=== PATIENT | male | born 1990 | race Caucasian/White ===

== ENCOUNTER 2022-04-20 20:44 | Emergency (ER) | payer OTHER, SELFPAY ==
[2022-04-20 22:17] VITALS: BP 117/61; PULSE 71; RESP 16; TEMP 37; O2SAT 100; BMI 19.2
--- NOTE | 2022-04-20 23:53 | ED_ITS ---
HPI - Wound/Laceration General Chief Complaint: Wound/Laceration Stated Complaint: Thumb lac Time Seen by Provider: 04/20/22 23:52 Source: patient Mode of arrival: ambulatory Limitations: no limitations History of Present Illness HPI narrative: 31 yo male presents to the ER for evaluation of a left thumb laceration. He was playing with a sword in his backyard when it slipped out of the casing, he went to catch it and he sustained a laceration to the inside of his left thumb. He reports there was a large flap and a lot of bleeding. He washed it out with soap and water and held pressure with a towel. He he came to the ER for evaluation of stitches. His tetanus is up-to-date. He states he can fully extend and bend the thumb. He denies any numbness or tingling. Onset (ago): hour(s) Extremity Location: left: hand (Thumb) Place: home Patient tetanus UTD: Yes Context: accidental Associated symptoms: pain Treatments prior to arrival: bandage Related Data Allergies Allergy/AdvReac Type Severity Reaction Status Date / Time No Known Allergies Allergy Unverified 05/17/20 18:35 [No Known Allergies*] Review of Systems Review of Systems: Constitutional: No Fever, No Chills Cardiovascular: No Chest Pain, No SOB Gastrointestinal: No Nausea, No Vomiting Musculoskeletal: No joint pain, No Myalgias Skin: + Skin Lesions, No rash Neuro: No Weakness, No Numbness Psych: + Anxiety/Panic, No Depression Heme/Lymph: No Bruising, No Lymphadenopathy PMFSH Social History Social History Advance Directives: No Advance Directives Information Provided: Yes Physical Exam Vital Signs: Vital Signs: Last Vital Signs Temp 98.6 F 04/20/22 22:17 Pulse 71 04/20/22 22:17 Resp 16 04/20/22 22:17 BP 117/61 04/20/22 22:17 Pulse Ox 100 04/20/22 22:17 O2 Del Method 04/20/22 22:17 BMI result Body Mass Index 19.2 Appearance: Alert. Oriented X3. No acute distress. HEENT: normal inspection CVS: Normal heart rate and rhythm. Pulses normal. Respiratory: No respiratory distress. Skin: Skin warm and dry. Normal skin color. Normal skin turgor. No rashes. Extremities: Palmar aspect of the left thumb with a 4 cm irregularly shaped laceration with a flap, active bleeding. Normal flexion extension of the thumb, normal thumb opposition. Neurovascular intact distally. Neuro: Oriented X 3. No motor deficit. No sensory deficit. Course Course Course Narrative: 31 yo male presenting with a laceration to his left thumb on a sword. He has full range of motion of the thumb, no sensory deficits. Active bleeding sli ghtly, pressure applied with improvement. Amenable to laceration repair with suturing. Patient agreeable. Tdap is up-to-date. Reevaluation(s) Reevaluation #1: Patient tolerated well. Seven sutures were placed. Wound care was discussed. Stable for discharge home. Procedures Laceration Laceration 1: Site: hand Side (If applicable): left Size (cm): 4 Description: flap and irregular Depth: simple, single layer Local Anesthetic: lidocaine 1% Amount of anesthesia used (mL): 5 Pre-repair: wound explored, irrigated extensively and deep structures intact Skin layer closed with: nylon Size (cm): 4-0 Number of sutures: 7 Technique: simple, interrupted Discharge Plan Discharge Clinical Impression: Laceration Patient Disposition: Home, Self-Care Instructions: Finger Laceration (ED) Additional Instructions: You will need your stitches out in 7 days. See you doctor for this or come back to the ER and we will remove them. Do not get wet for 24 hours, after that you can briefly wash with soap and water then pat dry. Use bacitracin 1x per day. Allow it to be open to air for several hours per day so it can scab up and heal. Keep wound clean and covered. Do not submerge in water, no swimming. If you develop signs of infection including increased pain, swelling, redness or drainage of pus come back to the ER for further evaluation. Stand Alone Forms: Work/School Release
[2022-04-21] MEDS: Lidocaine HCl 1 % MPF 5 ML VIAL SUBCUT (00:13)
== END 2022-04-21 00:59 | disposition home or self-care (01) ==
PROVIDERS: Emergency Provider Emergency Medicine
DX: S61.012A Laceration without foreign body of left thumb without damage to nail, initial encounter (principal); W26.1XXA Contact with sword or dagger, initial encounter; Y93.89 Activity, other specified; Y92.017 Garden or yard in single-family (private) house as the place of occurrence of the external cause; Y99.9 Unspecified external cause status
CPT/HCPCS: 12042; 99282; 99284

== ENCOUNTER 2022-04-27 19:10 | Emergency (ER) | payer OTHER, SELFPAY ==
[2022-04-27 19:31] VITALS: BP 113/67; PULSE 76; RESP 15; TEMP 36.8; O2SAT 98; BMI 19.2
--- NOTE | 2022-04-27 19:47 | ED_ITS ---
HPI - Wound/Laceration General Chief Complaint: Wound/Laceration Stated Complaint: told to return to get stitiches removed Time Seen by Provider: 04/27/22 19:43 Source: patient Mode of arrival: ambulatory Limitations: no limitations History of Present Illness HPI narrative: 31-year-old male presents for suture removal to his right thumb. Onset (ago): week(s) (1) Extremity Location: right: hand (thumb) Patient tetanus UTD: Yes Related Data Allergies Allergy/AdvReac Type Severity Reaction Status Date / Time No Known Allergies Allergy Verified 04/27/22 19:30 [No Known Allergies*] Review of Systems Review of Systems: Constitutional: No Fever, No Chills ENT/Mouth: No Ear Pain, No Hoarseness, No sore throat Eyes: No Eye Pain, No Swelling, No Redness, No Foreign Body Cardiovascular: No Chest Pain, No SOB Respiratory: No Cough, No Dyspnea Gastrointestinal: No Nausea, No Vomiting, No Diarrhea, No abdominal Pain Genitourinary: No Dysuria, No Hematuria Musculoskeletal: No joint pain, No Myalgias, No Joint Swelling Skin: Positive sutures to right thumb, No Skin lacerations, No rash Neuro: No Weakness, No Numbness, No Paresthesias, No Loss of Consciousness, No Dizziness, No Headache Psych: No Anxiety/Panic, No Depression Heme/Lymph: no easy bruising, no Lymphadenopathy Endocrine: No Polyuria, No Polydipsia Yes all other systems are reviewed and are negative [facility] Past Medical History Attestation statement: The following information was validated with the patient. Source: old records reviewed Social History Social History Advance Directives: No Advance Directives Information Provided: No Physical Exam Vital Signs: Vital Signs: Last Vital Signs Temp 98.2 F 04/27/22 19:31 Pulse 76 04/27/22 19:31 Resp 15 04/27/22 19:31 BP 113/67 04/27/22 19:31 Pulse Ox 98 04/27/22 19:31 O2 Del Method 04/27/22 19:31 BMI result Body Mass Index 19.2 Appearance: Alert. Oriented X3. No acute distress. Eyes: Pupils equal, round and reactive to light. ENT: Pharynx normal. Neck: Normal inspection. Neck supple. CVS: Normal heart rate and rhythm. Pulses normal. Respiratory: No respiratory distress. Breath sounds normal. Abdomen: Soft and nontender. Skin: Sutures in place to right thumb, well-approximated, no indication of infection Extremities: No lower extremity edema. Moves all extremities against resistance. Full range of motion to all digits. Neuro: No motor deficit. No sensory deficit. Cranial nerves 2-12 intact. Course Course Course Narrative: 31-year-old male presents for suture removal to his right thumb. Upon inspection, the wound is healing well, there is no indication of infection. Sutures have been in place for 7 days, I would like sutures to be in place for at least 3 more days before removing because it involves the joint space of the palmar aspect of the right thumb. Patient has full range of motion, strength 5/5. Patient does understand rationale for waiting, and requires a work note. Work note provided, patient will return in 3-5 days for suture removal. MDM - Wound/Laceration Differential Diagnosis Differential diagnosis: Likely laceration Medical Records Attestation: I reviewed the patient's medical records. Discharge Plan Discharge Clinical Impression: Laceration Patient Disposition: Home, Self-Care Additional Instructions: You presented for suture removal for a thumb laceration. Please return in 3-5 days, your wound is not healed enough to remove sutures at this time. Thank you for choosing this emergency department for evaluation. Please follow-up with primary care physician as needed. Return to the emergency department for any new, concerning, or worsening symptoms. Stand Alone Forms: Work/School Release Interventions: ED Discharge Assessment Last Done: 04/27/22 19:59 Discharge Date/Time: 04/27/22 20:01
== END 2022-04-27 20:01 | disposition home or self-care (01) ==
LOC: HO.ED 20:01
PROVIDERS: Emergency Provider Internal Medicine
DX: Z48.02 Encounter for removal of sutures (principal); Z79.899 Other long term (current) drug therapy
CPT/HCPCS: 99282; 99283

== ENCOUNTER 2022-05-02 16:01 | Emergency (ER) | payer OTHER, SELFPAY ==
[2022-05-02 16:38] VITALS: BP 111/61; PULSE 61; RESP 16; TEMP 36.1; O2SAT 99; BMI 19.2
--- NOTE | 2022-05-02 16:43 | ED.WOUNDLAC ---
HPI - Wound/Laceration General Chief Complaint: Wound/Laceration Stated Complaint: Suture removal Time Seen by Provider: 05/02/22 16:30 Source: patient Mode of arrival: ambulatory Limitations: no limitations History of Present Illness HPI narrative: 31-year-old male presents to the ER for suture removal of sutures placed on his left thumb on April 20 While using if MRI sort. He reports the wound has been healing appropriately. He came to the ER on April 27 and provider recommended few more days of sutures in place as wound was not completely healed yet. He reports no issues with redness, drainage, swelling, pain. He has full range of motion of the thumb. He has been putting bacitracin on the wound with good effect. Extremity Location: left: hand (thumb) Place: home Patient tetanus UTD: Yes Context: accidental Associated symptoms: none Treatments prior to arrival: bandage Related Data Allergies Allergy/AdvReac Type Severity Reaction Status Date / Time No Known Allergies Allergy Verified 04/27/22 19:30 [No Known Allergies*] Review of Systems Review of Systems: Constitutional: No Fever, No Chills Musculoskeletal: No joint pain Skin: + Skin Lesions, No rash Neuro: No Weakness, No Numbness Psych: No Anxiety/Panic, No Depression Heme/Lymph: No Bruising PMFSH Social History Social History Advance Directives: No Advance Directives Information Provided: Yes Physical Exam Vital Signs: Vital Signs: Last Vital Signs Temp 97.0 F 05/02/22 16:38 Pulse 61 05/02/22 16:38 Resp 16 05/02/22 16:38 BP 111/61 05/02/22 16:38 Pulse Ox 99 05/02/22 16:38 O2 Del Method 05/02/22 16:38 BMI result Body Mass Index 19.2 Appearance: Alert. Oriented X3. No acute distress. HEENT: normal inspection CVS: Normal heart rate and rhythm. Pulses normal. Respiratory: No respiratory distress. Skin: Skin warm and dry. Normal skin color. Normal skin turgor. No rashes. Extremities: left thumb with an irregular slightly shaped wound with sutures in place, wound is clean, dry, skin is intact well approximated. No redness, tenderness, drainage. Normal range of motion of the thumb. Neurovascularly intact distally. Neuro: Oriented X 3. No motor deficit. No sensory deficit. Course Course Course Narrative: 31-year-old male presents to the ER for evaluation of his left thumb laceration to see if it is time for his sutures to be removed. Upon exam the wound appears to be well-healed, wound is well approximated. All sutures were removed and dry sterile dressing applied. Wound care was discussed. Stable for discharge home. Discharge Plan Discharge Clinical Impression: Laceration, Encounter for removal of sutures Patient Disposition: Home, Self-Care Instructions: Stitches Removal (ED) Additional Instructions: Do not peel the Steri-Strips off, 11 to come off on their own. Do not get the wound wet today, after today you can briefly washes open water then pat dry. Use bacitracin or Neosporin to the area to help wound healing.
== END 2022-05-02 16:56 | disposition home or self-care (01) ==
PROVIDERS: Emergency Provider Student in an Organized Health Care Education/Training Program
DX: Z48.02 Encounter for removal of sutures (principal)
CPT/HCPCS: 99282; 99283